=== PATIENT | female | born 1995 | race Caucasian/White ===

== ENCOUNTER 2020-11-17 11:49 | Outpatient (RCR) | payer OTHER, SELFPAY ==
[2020-11-17 12:40] LABS: Beta HCG Quantitative < 2.39 mIU/ML
[2020-11-17] MEDS: RHO(D) IMMUNE GLOBULIN 300 MCG/2 ML SYRINGE IM (14:51)
== END 2021-02-15 23:59 | disposition home or self-care (01) ==
LOC: ANHLAB 11:49
PROVIDERS: Visit Provider Obstetrics & Gynecology
DX: Z29.13 Encounter for prophylactic Rho(D) immune globulin (principal); O20.0 Threatened abortion; Z3A.00 Weeks of gestation of pregnancy not specified
CPT/HCPCS: 36415; 84702; 85461; 90384; 96372; J2790

== ENCOUNTER 2021-04-01 14:51 | Outpatient (CLI) | payer OTHER, MEDICAID, SELFPAY | END 2021-04-01 14:52 | disposition home or self-care (01) | LOC: ANHLAB 14:54 | PROVIDERS: Visit Provider Obstetrics & Gynecology | DX: Z32.01 Encounter for pregnancy test, result positive (principal); N91.2 Amenorrhea, unspecified | CPT/HCPCS: 36415; 84702 ==